=== PATIENT | female | born 1945 | race Caucasian/White ===

== ENCOUNTER 2021-10-18 08:52 | Outpatient (REF) | payer MEDICARE, SELFPAY ==
[2021-10-18 11:15] LABS: MANUAL DIFF FLAG NO
[2021-10-18 11:26] LABS: Basophils Percent Auto 0.5 % (0-2); Eosinophils Absolute Auto 0.2 X10*3/uL (0.0-0.4); Eosinophils Percent Auto 3.5 % (0-4); Hematocrit 40.3 % (37.0-47.0); Hemoglobin 13.4 g/dl (12.0-16.0); Imm Gran Abs Auto 0.02 X10*3/uL (0.00-0.03); Imm Gran Pct Auto 0.3 % (0.0-0.4); Lymphocytes Percent Auto 32.1 % (20-40); Mean Corpuscular HGB Conc 33.3 g/dl (31.0-35.0); Mean Corpuscular Hemoglobin 29.6 pg (27.0-33.0); Mean Corpuscular Volume 89.2 fL (80.0-98.0); Mean Platelet Volume 9.5 fL (9.4-12.3); Monocytes Absolute Auto 0.5 X10*3/uL (0.1-1.2); Monocytes Percent Auto 7.6 % (2-11); Neutrophils Absolute Auto 3.5 x10*3/uL (2.0-8.3); Platelet Count 271 X10*3/uL (160-400); Red Blood Count 4.52 X10*6/uL (4.20-5.50); White Blood Count 6.3 X10*3/uL (4.8-10.8)
[2021-10-18 11:46] LABS: Alanine Aminotransferase 26 U/L (0-31); Albumin Level 4.3 g/dL (3.5-5.0); Alkaline Phosphatase 86 U/L (39-117); Anion Gap 13 (12-20); Aspartate Amino Transferase 23 U/L (5-31); Bilirubin Direct 0.3 mg/dL (0.0-0.5); Bilirubin Total 0.8 mg/dL (0.0-1.0); Blood Urea Nitrogen 16 mg/dL (9-16); Carbon Dioxide 25 mmol/L (22-29); Chloride 106 mmol/L (96-108); Cholesterol 153 mg/dL; Estimated Glomerular Filt Rate > 60; Glucose Fasting 107 mg/dL (60-99); HDL Cholesterol 34 mg/dL; LDL Cholesterol Calculated 80 mg/dl; Potassium 4.4 mmol/L (3.3-5.1); Sodium 140 mmol/L (135-145); Triglycerides 199 mg/dL
[2021-10-18 12:18] LABS: Free T4 (Free Thyroxine) 1.07 ng/dL (0.71-1.85); Thyroid Stimulating Hormone 2.74 uIU/mL (0.32-4.0)
== END 2021-10-18 08:53 | disposition home or self-care (01) ==
LOC: HO.HMGCLDS 08:52
PROVIDERS: PCP Internal Medicine; Visit Provider Internal Medicine
DX: R53.83 Other fatigue (principal); E03.9 Hypothyroidism, unspecified; E78.5 Hyperlipidemia, unspecified
CPT/HCPCS: 36415; 80051; 80061; 80076; 82565; 82947; 84439; 84443; 84520; 85025

== ENCOUNTER 2022-10-31 08:12 | Day surgery (SDC) | payer MEDICARE, SELFPAY ==
--- NOTE | 2022-10-30 09:31 | P.CONAN_ITS ---
Documented by User: Piedad Kraus NP 10/30/22 09:31 HPI - Anesthesia Eval Consult details Narrative: 77yo F for Colonoscopy [facility] Past Medical History Medical History HLD (hyperlipidemia) HTN (hypertension) Hypothyroid Surgical History Surgical History H/O colonoscopy (~2018) S/P cholecystectomy Social History Social History Are you a primary residential care facility manager to a significant other at home: No Do you presently have visiting nurse or other home services: No Patient Tobacco Use Status: Never used Tobacco Use of substances other than those prescribed or required for medical reasons: No Have you been hit, kicked, punched, or otherwise hurt by someone within the past year? If so, by whom?: No Are you DNR?: No Advance Directives: No Advance Directives Information Provided: Yes Recently lost weight without trying: No Eating poorly because of decreased appetite: No Nutrition Risks: Acute nausea or vomiting x1 week Patient : No Meds Allergies Allergy/AdvReac Type Severity Reaction Status Date / Time No Known Allergies Allergy Unverified 02/23/20 14:49 Home Medications Medication Instructions Recorded Confirmed Last Taken Type levothyroxine 100 mcg tablet 100 mcg PO DAILY 10/29/22 10/31/22 10/31/22 History lisinopril 10 mg tablet 10 mg PO DAILY 10/29/22 10/31/22 10/31/22 History pravastatin 20 mg tablet 20 mg PO DAILY 10/29/22 10/29/22 Unknown History Exam Exam Date and Time: October 30, 2022930 Assessment and Plan Assessment Anesthesia Assessment: Chart Reviewed Documented by User: Eneida French MD 10/31/22 09:33 [facility] Past Medical History Medical History HLD (hyperlipidemia) HTN (hypertension) Hypothyroid Family History Family history of problems with anesthesia: No Surgical History Surgical History H/O colonoscopy (~2017) S/P cholecystectomy History of Problems with Anesthesia: No Social History Social History Are you a primary residential care facility manager to a significant other at home: No Do you presently have visiting nurse or other home services: No Patient Tobacco Use Status: Never used Tobacco Use of substances other than those prescribed or required for medical reasons: No Have you been hit, kicked, punched, or otherwise hurt by someone within the past year? If so, by whom?: No Are you DNR?: No Advance Directives: No Advance Directives Information Provided: Yes Recently lost weight without trying: No Eating poorly because of decreased appetite: No Nutrition Risks: Acute nausea or vomiting x1 week Patient : No Meds Allergies Allergy/AdvReac Type Severity Reaction Status Date / Time No Known Allergies Allergy Unverified 02/23/20 14:49 Home Medications Medication Instructions Recorded Confirmed Last Taken Type levothyroxine 100 mcg tablet 100 mcg PO DAILY 10/29/22 10/31/22 10/31/22 History lisinopril 10 mg tablet 10 mg PO DAILY 10/29/22 10/31/22 10/31/22 History pravastatin 20 mg tablet 20 mg PO DAILY 10/29/22 10/29/22 Unknown History Exam Height,Weight and Vital Signs: Height 5 ft 5 in Weight 75.9 kg Vital Signs Temp Pulse Resp BP Pulse Ox O2 Del Method 10/31/22 09:20 98.1 F 75 18 175/70 H 99 Room Air Airway Mallampati Class: II TM Dist: >3cm Neck ROM: Full Loose/Missing/Broken Teeth: No (Caps intact. Denies broken, loose, missing teeth ) Heart: RRR Lungs: CTAB Assessment and Plan Assessment Anesthesia Assessment: Anesthesia Plan Discussed Final Anesthetic Review Family History of Problems with Anesthesia: No History of Problems with Anesthesia: No NPO: Yes ASA Class: II Final Preanesthetic Review: No Changes in Pt Med Stat, Meds/Allgs Chart Reviewed, Consent Obtained/Reviewed and Anes Risks/Benef Reviewed Patient Risk: Low Procedure Risk: Low Assessment/Block/Sedation in SS: Assess/Block/Sedation-SS Anesthetic Plan Anesthetic Plan: MAC: Disposition: Standard PACU
[2022-10-31 09:20] VITALS: BP 175/70; PULSE 75; RESP 18; TEMP 36.7; O2SAT 99; BMI 27.8
--- NOTE | 2022-10-31 09:51 | HO.ANESPROP2 ---
HPI - Anesthesia Eval Consult details Narrative: screening COUNTS INCLUDE 234 BEDS AT THE [facility] Past Medical History Medical History HLD (hyperlipidemia) HTN (hypertension) Hypothyroid Family History Family history of problems with anesthesia: No Surgical History Surgical History H/O colonoscopy (~2017) S/P cholecystectomy History of Problems with Anesthesia: No Social History Social History Are you a primary personal care aid to a significant other at home: No Do you presently have visiting nurse or other home services: No Patient Tobacco Use Status: Never used Tobacco Use of substances other than those prescribed or required for medical reasons: No Have you been hit, kicked, punched, or otherwise hurt by someone within the past year? If so, by whom?: No Are you DNR?: No Advance Directives: No Advance Directives Information Provided: Yes Recently lost weight without trying: No Eating poorly because of decreased appetite: No Nutrition Risks: Acute nausea or vomiting x1 week Patient : No Meds Allergies Allergy/AdvReac Type Severity Reaction Status Date / Time No Known Allergies Allergy Unverified 02/23/20 14:49 Active Medications: Current Medications Lactated Ringer's (Lr) 1,000 mls @ 100 mls/hr IVCONT .Q10H GORDON Ondansetron HCl (Ondansetron Hcl 4 Mg/2 Ml Vial) 4 mg IVPUSH ONCE PRN PRN Reason: Nausea and Vomiting Sodium Biphosphate/Sodium Phosphate (Sodium Phosphate,[place]-Dibasic 133 Ml Enema) 133 ml NC ONCE PRN PRN Reason: Poor Colonoscopy Prep Results Home Medications Medication Instructions Recorded Confirmed Last Taken Type levothyroxine 100 mcg tablet 100 mcg PO DAILY 10/29/22 10/31/22 10/31/22 History lisinopril 10 mg tablet 10 mg PO DAILY 10/29/22 10/31/22 10/31/22 History pravastatin 20 mg tablet 20 mg PO DAILY 10/29/22 10/29/22 Unknown History Exam Exam Date and Time: October 31, 2022 0951 Height,Weight and Vital Signs: Height 5 ft 5 in Weight 75.9 kg Last Vital Signs Temp 98.1 F 10/31/22 09:20 Pulse 75 10/31/22 09:20 Resp 18 10/31/22 09:20 BP 175/70 H 10/31/22 09:20 Pulse Ox 99 10/31/22 09:20 O2 Del Method Room Air 10/31/22 09:20 Airway Mallampati Class: II TM Dist: >3cm Neck ROM: Full Loose/Missing/Broken Teeth: No Heart: rr Lungs: cts Assessment and Plan Assessment Anesthesia Assessment: Anesthesia Plan Discussed and Chart Reviewed Final Anesthetic Review Family History of Problems with Anesthesia: No History of Problems with Anesthesia: No NPO: Yes ASA Class: II Final Preanesthetic Review: No Changes in Pt Med Stat, Meds/Allgs Chart Reviewed, Consent Obtained/Reviewed and Anes Risks/Benef Reviewed Patient Risk: Low Procedure Risk: Low Anesthetic Plan Anesthetic Plan: MAC: Disposition: Standard PACU
[2022-10-31 10:30] VITALS: BP 78/46; PULSE 72; RESP 18; TEMP 36.1; O2SAT 96
--- NOTE | 2022-10-31 10:30 | PM.OP ---
Brief Operative Note Date of Service: 10/31/22 Pre-op diagnosis: Screening Post-op diagnosis: other (Polyp) Procedure: Colonoscopy to the cecum with hot snare polypectomy. Surgeon: Kev Cagle Anesthesia: MAC Was an Senior Front End Web Developer used for this Procedure?: No Estimated blood loss (mL): 0 Pathology: other (A. Polyp at 20cm) Condition: stable Disposition: PACU
[2022-10-31 10:33] VITALS: BP 88/43
[2022-10-31 10:35] VITALS: BP 105/51
[2022-10-31 10:45] VITALS: BP 124/57; PULSE 68; RESP 18; TEMP 36.6; O2SAT 96
--- NOTE | 2022-10-31 11:00 | OP_ITS ---
DATE OF SERVICE: 10/31/2022 SURGEON: Kev Cagle MD INDICATIONS: The patient presents for evaluation of colorectal cancer screening, personal history of tubular adenoma of the colon, and family history of colon cancer. Full consent has been obtained from her for this, including risks of bleeding and perforation. PREOPERATIVE DIAGNOSIS: POSTOPERATIVE DIAGNOSIS: PROCEDURE PERFORMED: Colonoscopy to the cecum with hot snare polypectomy. ESTIMATED BLOOD LOSS: COMPLICATIONS: ANESTHESIA: Medication used: Monitored anesthesia care. ASSISTANTS: SPECIMENS: PREOPERATIVE DIAGNOSES: Colorectal cancer screening, personal history of tubular adenoma of the colon, family history of colon cancer. POSTOPERATIVE DIAGNOSES: Colorectal cancer screening, personal history of tubular adenoma of the colon, family history of colon cancer, colon polyp, diverticulosis, and internal hemorrhoids. DESCRIPTION OF PROCEDURE: The patient was placed in the left lateral decubitus position. The digital rectal exam revealed some external hemorrhoids. The Olympus video pediatric colonoscope was entered into the rectum and advanced to the cecum with the assistance of abdominal wall pressure. Once in the cecum, I did identify a normal-appearing cecal pouch with appendiceal orifice and a normal-appearing ileocecal valve. The entire cecum and ileocecal valve appeared normal. There was transillumination of light deep in the right lower quadrant. The scope was then slowly withdrawn, assessing all mucosal surfaces carefully. Preparation was excellent. At 20 cm was an approximately 10 to 12 mm slightly raised polyp that appeared to be consistent with a possible serrated polyp. This was removed by hot snare polypectomy and recovered by suction. The polypectomy site appeared clean, without any sign of residual polyp nor bleeding. I did not visualize any other polyps, colitis, nor angiodysplasia. There was a mild amount of sigmoid diverticulosis. In the rectum, the scope was retroflexed visualizing internal hemorrhoids, but no other pathology. The rectal mucosa appeared normal. Scope was straightened and withdrawn from the patient. She tolerated the procedure well and was returned to the recovery area in stable condition. IMPRESSION: 1. Colon polyp. 2. Diverticulosis. 3. Internal hemorrhoids. PLAN: Given her age and these minimal findings, I do not think she would need any further screening colonoscopies in the future. She was advised not to use any aspirin and NSAIDs for 1 week. She will see me otherwise on a p.r.n. basis. This has been discussed with her . MD NEO Hernandes/MODL / [phone]
== END 2022-10-31 11:28 | disposition home or self-care (01) ==
PROVIDERS: PCP Internal Medicine; Visit Provider Internal Medicine
PROC: 0DJD8ZZ Inspection of Lower Intestinal Tract, Via Natural or Artificial Opening Endoscopic (ICD-10-PCS; CPT 45378; principal; 2022-10-31 09:20)
DX: Z12.11 Encounter for screening for malignant neoplasm of colon (principal); Z86.010 Personal history of colon polyps; Z80.0 Family history of malignant neoplasm of digestive organs; K63.5 Polyp of colon; K57.30 Diverticulosis of large intestine without perforation or abscess without bleeding; K64.8 Other hemorrhoids; I10 Essential (primary) hypertension; E78.5 Hyperlipidemia, unspecified; E03.9 Hypothyroidism, unspecified; Z79.899 Other long term (current) drug therapy; Z90.49 Acquired absence of other specified parts of digestive tract
CPT/HCPCS: 45385; 88305

== ENCOUNTER 2025-01-27 14:43 | Outpatient (AMB) | payer MEDICARE, SELFPAY ==
--- NOTE | 2025-01-27 14:43 | MHC.PC.OV ---
Vital Signs 01/27/25 14:50 Height 5 ft 4.57 in Weight 165 lb BMI 27.8 BP 134/90 H Blood Pressure Location Rt femoral Position Sitting Respiration 16 Pulse 84 Pulse Source Pulse Oximeter Temp 98.2 F Temp Source Temporal Artery Scan Pulse Oximetry (%) 97 Oxygen Delivery Method Room Air Intake Visit Reasons: Establish Care Medical Imaging Technologist Required: No Accompanied by: Self / Same As Patient Allergies No Known Allergies Allergy (Verified 01/27/25 15:03) Medication List - Last Reconciled 01/27/25 by Hoda Cool PA-C levothyroxine 100 mcg PO DAILY lisinopril 10 mg PO DAILY pravastatin 20 mg PO DAILY Tobacco use date assessed: 01/27/25 Fall risk assessment: No Falls in past year Last assessed Fall Risk: 01/27/25 Dental Screening Dental Screen Date: 01/27/25 Did you have a dental visit in the last 12 months?: Yes Did you have a dental problem in the last 6 months where you did not have access to dental care?: No Was dental information given to patient?: Patient has dentist HPI Establish Care HPI Details The patient is a 79-year-old female presenting for the establishment of primary care. The patient has a history of hypothyroidism, diagnosed in 2006, and has been on levothyroxine since then. Initially, the dose was higher, but it was reduced after three months and has remained stable since. She also has hypertension, currently managed with lisinopril 10 mg, and hyperlipidemia managed with pravastatin 20 mg. Her blood pressure was noted to be higher than usual during this visit, with a reading of 193/70 mmHg, although she typically records around 130/68 mmHg. The patient underwent a colonoscopy on October 31, 2022, which revealed colonic polyps, diverticulosis, and hemorrhoids. A small polyp was removed and found to be of no consequence. Preventative care includes annual mammograms and colonoscopies every five years due to a family history of rectal cancer in her brother. Social History - Care Home: The patient retired at age 65 and has been managing her health independently since then. [facility] Medical History (Updated 01/27/25 @ 15:28 by Hoda Cool PA-C) History of mammogram (~2023) Preventative health care Hemorrhoids Diverticulosis Colonic polyp HLD (hyperlipidemia) HTN (hypertension) Hypothyroid Surgical History (Updated 01/27/25 @ 15:28 by Hoda Cool PA-C) S/P cholecystectomy H/O colonoscopy (~10/31/22) Family History Father No problems noted. Mother Type 2 diabetes mellitus Social History Housing: House Are you a primary palliative care physician to a significant other at home: No Do you presently have visiting nurse or other home services: No Alcohol intake: current Alcohol intake frequency: holidays/special occasions only Patient Tobacco Use Status: Never used Tobacco service: No Current occupational status: retired Cognitive needs: No Hearing needs: No Vision needs: Yes (rx glasses) Questionnaire PHQ-9 Over the last 2 weeks, how often have you been bothered by any of the following problems? 1. Little interest or pleasure in doing things: not at all 2. Feeling down, depressed, or hopeless: not at all 3. Trouble falling or staying asleep, or sleeping too much: not at all 4. Feeling tired or having little energy: not at all 5. Poor appetite or overeating: not at all 6. Feeling bad about yourself - or that you are a failure or have let yourself or your family down: not at all 7. Trouble concentrating on things, such as reading the newspaper or watching television: not at all 8. Moving or speaking so slowly that other people could have noticed. Or the opposite - being so fidgety or restless that you have been moving around a lot more than usual: not at all 9. Thoughts that you would be better off or of hurting yourself in some way: not at all Total score: 0 Depression Screening Interpretation: Negative Depression Screening Done: Yes 51735 - PHQ-9 Billing: Yes Source: Developed by Drs. Kev Caballero, Windy Scanlon, Jac Hadley and colleagues, with an educational ryan from [employer]. Thrive Questionnaire Date Thrive assessed: 01/27/25 I am a: Patient What is your living situation today?: I have a steady place to live Within the past 12 months, did the food you bought not last and you didn't have the money to get more?: Never true Within the past 12 months, did you worry whether your food would run out before you got money to buy more?: Never true Do you have trouble paying for medicines?: No Do you have trouble getting transportation to medical appointments?: No Do you have trouble paying your heating and electricity bill?: No Do you have trouble taking care of your child, family member or friend?: No Do you have trouble with day-to-day activities such as bathing, preparing meals, shopping, managing finances, etc.?: No Are you currently unemployed and looking for a job?: No Are you interested in more education?: No Please select the resources that you would like help with: None Currently or been in a relationship where the following occur: No concerns reported THRIVE Score: 0 AUDIT C Alcohol Use Questionnaire (AUDIT-C) 1. How often do you have a drink containing alcohol?: Monthly or less 2. How many drinks containing alcohol do you have on a typical day when you are drinking?: 1 or 2 3. How often do you have six or more drinks on one occasion?: Never Total Score: 1 Score Reviewed/Action Taken: No ROSA-7 AMB Questionnaire ROSA-7 Date ROSA - 7 assessed: 01/27/25 Feeling nervous, anxious, or on edge: 0 = Not at all Not being able to stop or control worryin = Not at all Worrying too much about different things: 0 = Not at all Trouble relaxin = Not at all Being so restless that it is hard to sit still: 0 = Not at all Becoming easily annoyed or irritable: 0 = Not at all Feeling afraid as if something awful might happen: 0 = Not at all Total ROSA-7 score (0-4 normal; 5-9 mild; 10-14 moderate; 15-21 severe): 0 Source: Developed by Drs. Kve Caballero, Windy Scanlon, Jac Hadley and colleagues, with an educational ryan from [employer]. ROSA-7 Assessment Billing ROSA-7 Assessment Tool: ROSA-7 Assessment 13005 Review of Systems Const Details: - Cardiovascular: Denies chest pain, palpitations, or syncope. - Gastrointestinal: Denies abdominal pain, nausea, vomiting, or changes in bowel habits. All systems reviewed & are unremarkable except as noted in HPI and below Physical exam (Primary Care) Vital Signs: Last Vital Signs Temp 98.2 F 01/27/25 14:50 Pulse 84 01/27/25 14:50 Resp 16 01/27/25 14:50 BP 134/90 H 01/27/25 14:50 Pulse Ox 97 01/27/25 14:50 Oxygen Delivery Method Room Air 01/27/25 14:50 Care Plan Goal for BP management: <140/90 at goal and patient to continue monitor her blood pressure if greater than 140/90 she will contact us to make an appointment BMI result Body Mass Index 27.8 BMI Assessment/Plan discussion: High BMI High, discussed plan: lifestyle, weight reduction, dietary, physical activity, alcohol moderation and other Tobacco/Smoking Status: Tobacco use Status Tobacco use date assessed 01/27/25 01/27/25 14:55 Patient Tobacco Use Status Never used Tobacco 01/27/25 14:55 PHQ-9: PHQ-9 Score PHQ-9: Total score 0 01/27/25 14:55 Depression Screening Interpretation: Negative Thrive Assessment: Date of Thrive Assessment Date Thrive assessed 01/27/25 01/27/25 14:55 Currently or been in a relationship where the following occur: No concerns reported Const Other: Appearance: Alert. Oriented X3. No acute distress. Head: Normal external exam. Normocephalic. Atraumatic. Eyes: Pupils are equal, round, and reactive to light. Extraocular movements intact. Conjunctiva and sclera normal. Eyelids normal. Ears: External auditory canal normal. Tympanic membranes normal. Throat: Pharynx normal. Uvula midline. Moist mucous membranes. Neck: Normal inspection. Neck supple. Full range of motion. Cardiovascular: Normal heart rate and rhythm. Heart sound normal. No murmurs noted. Pulses normal throughout. Respiratory: No respiratory distress. Painless inspiration. Breath sounds normal. No wheezes/rales/rhonchi noted. No accessory muscle usage noted or decreased air movement noted. Back: Full range of motion noted. Skin: Skin warm and dry. Normal skin color. Normal skin turgor. No rashes/lesions/lacerations noted. Extremities: No lower extremity edema. Extremities exhibit normal range of motion. Results Reviewed Results Reviewed: - Colonoscopy (10/31/2022): Revealed colonic polyps, diverticulosis, and hemorrhoids. A small polyp was removed and found to be of no consequence. Coding Level of Care Code New Pt Level 4 (29302) Complex EM visit Add On G2211 Diagnoses Hypothyroid E03.9 HTN (hypertension) I10 HLD (hyperlipidemia) E78.5 Colonic polyp K63.5 Diverticulosis K57.90 Hemorrhoids K64.9 Preventative health care Z00.00 Additional Codes PHQ-9 - 28555 - PHQ-9 Billing: Yes ([id number]) ROSA-7 Assessment Billing - ROSA-7 Assessment Tool: ROSA-7 Assessment 61964 ([id number]) Assessment & Plan Assessment & Plan (1) Hypothyroid: Code(s): E03.9 - Hypothyroidism, unspecified Category: Medical Plan: The patient will continue on her current dose of levothyroxine 100 mcg, as her thyroid function tests were normal during her last evaluation. (2) HTN (hypertension): Code(s): I10 - Essential (primary) hypertension Category: Medical Plan: The patient's blood pressure was elevated during the visit, but she typically has lower readings at home. She is advised to monitor her blood pressure at home and report any consistently high readings. (3) HLD (hyperlipidemia): Code(s): E78.5 - Hyperlipidemia, unspecified Category: Medical Plan: The patient will continue on pravastatin 20 mg for hyperlipidemia management. (4) Colonic polyp: Code(s): K63.5 - Polyp of colon Category: Medical Plan: The patient had a colonoscopy that revealed colonic polyps, one of which was removed and found to be benign. (5) Diverticulosis: Code(s): K57.90 - Diverticulosis of intestine, part unspecified, without perforation or abscess without bleeding Category: Medical Plan: The patient is asymptomatic for diverticulosis and requires no specific treatment at this time. (6) Hemorrhoids: Code(s): K64.9 - Unspecified hemorrhoids Category: Medical Plan: The patient has hemorrhoids, but no active treatment is required as they are not causing symptoms. (7) Preventative health care: Code(s): Z00.00 - Encounter for general adult medical examination without abnormal findings Category: Medical Plan: The patient is advised to continue with annual mammograms and colonoscopies every five years due to family history of rectal cancer. Plan Plan Patient was informed and verbally consented to the use of an ambient scribe for clinic note documentation during this visit. 1. Hypothyroidism The patient will continue on her current dose of levothyroxine 100 mcg, as her thyroid function tests were normal during her last evaluation. 2. Hypertension The patient's blood pressure was elevated during the visit, but she typically has lower readings at home. She is advised to monitor her blood pressure at home and report any consistently high readings. 3. Hyperlipidemia The patient will continue on pravastatin 20 mg for hyperlipidemia management. 4. Colonic Polyps The patient had a colonoscopy that revealed colonic polyps, one of which was removed and found to be benign. 5. Diverticulosis The patient is asymptomatic for diverticulosis and requires no specific treatment at this time. 6. Hemorrhoids The patient has hemorrhoids, but no active treatment is required as they are not causing symptoms. 7. Preventative Care The patient is advised to continue with annual mammograms and colonoscopies every five years due to family history of rectal cancer. During the visit, I discussed with the patient the importance of monitoring her blood pressure at home due to the elevated reading observed today. We reviewed her current medications, including levothyroxine, lisinopril, and pravastatin, and confirmed that no changes are needed at this time. I also emphasized the need for continued preventative care, including annual mammograms and colonoscopies every five years, given her family history of rectal cancer. Orders: Orders Complete Blood Count Auto Diff Today Z00.00 - Encounter for general adult medical examination without abnormal findings Liver Panel Today Z00.00 - Encounter for general adult medical examination without abnormal findings TSH reflex Free T4 Today Z00.00 - Encounter for general adult medical examination without abnormal findings C Reactive Protein Today Z00.00 - Encounter for general adult medical examination without abnormal findings Comprehensive [place]. Panel Fast Today Z00.00 - Encounter for general adult medical examination without abnormal findings Magnesium Today Z00.00 - Encounter for general adult medical examination without abnormal findings Hemoglobin A1c Today Z00.00 - Encounter for general adult medical examination without abnormal findings Lipid Panel Today Z00.00 - Encounter for general adult medical examination without abnormal findings Vitamin B12 and Folate Today Z00.00 - Encounter for general adult medical examination without abnormal findings Vitamin D 25-OH Total Today Z00.00 - Encounter for general adult medical examination without abnormal findings Patient Instructions: - Monitor blood pressure at home regularly and report any consistently high readings. - Continue taking current medications as prescribed. - Schedule and attend annual mammograms and colonoscopies every five years.
--- OUTSIDE RECORDS SUMMARY | 2025-01-27 14:47 | XMS_ITS | Patient Health Record ---
Author Organization [facility] Address [address] [place] [address] Care Team Providers Care Medical Technologist Clinical Name Role Phone Josephine (RETIRED) Lg WILLOUGHBY Primary Care Provider Unavailable Kev Cagle Unavailable [phone] Allergies No Known Allergies Reason For Referral No Information Medications Medication SIG (Take, Route, Frequency, Duration) Notes Start Date End Date Status Lisinopril 10 MG TAKE ONE TABLET BY M OUTH EVERY DAY Oral for 90 Active Calcium + D Active Centrum Silver Activ e Levothyroxine Sodium 100 MCG TAKE ONE TABLET BY MOUTH EVERY DAY Oral for 90 Active Pravastatin Sodium 20 MG TAKE ONE TABLET BY MOUTH EVERY DAY. DISCONTINUE FENOFIBRATE Oral for 90 Active Problems Problem Type SNOMED Code ICD Code Onset Dates Problem Status W/U Status Risk Notes Problem 504500334 Colon cancer screening (Z12.11) Active confirmed Problem 486187766 Encounter for screening for malignant neoplasm of colon (Z12.11) Active confirmed Problem 251048508 History of adenomatous polyp of colon (Z86.010) Active confirmed Problem 572322034389097 Preprocedural examination (Z01.818) Active confirmed Problem 364432855 Family history o f colon cancer (Z80.0) Active confirmed Problem Diverticulosis of colon (102704545) Diverticulosis of colon (K57.30) Active confirmed Plan Of Treatment Pending Test Test Name Order Date Pathology 10/31/2022 Future Test Test Name Order Date COLONOSCOPY 12/16/2011 COLONOSCOPY 04/28/2017 COLONOSCOPY 08/28/2022 Insurance Providers Payer Name Payer Address Payer Phone Subscriber Number Group Number Insured Name Patient Relationship to Insured Coverage Start Date Coverage End Date [facility] [address] [facility], [place] [phone] [id number] LAYA MURCIA Self - patient is the insured Medical (General) History Medical History History ICD Code Hypothyroidism Colonoscopy 08-17-2006-tubula r adenoma removed; negative colonoscopy in 12/2011 except for mild diverticulosis and small internal hemorrhoids HTN Denies PR,DM,CVA,Lung disease,renal dise ase Colonoscopy 06/2017 with a hyperplastic p olyp Hyperlipidemia Surgical History Surgery Date(Month/Year) x 2 Cholecystectomy
[2025-01-27 14:50] VITALS: BP 134/90; PULSE 84; RESP 16; TEMP 36.8; O2SAT 97; BMI 27.8
== END 2025-01-27 15:48 | disposition home or self-care (01) ==
PROVIDERS: PCP Internal Medicine; Visit Provider Physician Assistant Medical
DX: E03.9 Hypothyroidism, unspecified (principal); I10 Essential (primary) hypertension; E78.5 Hyperlipidemia, unspecified; K63.5 Polyp of colon; K57.90 Diverticulosis of intestine, part unspecified, without perforation or abscess without bleeding; K64.9 Unspecified hemorrhoids; Z00.00 Encounter for general adult medical examination without abnormal findings

== ENCOUNTER → 2025-01-27 14:43 | Outpatient (BNVA) | payer MEDICARE, SELFPAY | PROVIDERS: PCP Internal Medicine; Visit Provider Physician Assistant Medical | DX: Z00.00 Encounter for general adult medical examination without abnormal findings (principal); I10 Essential (primary) hypertension; E03.9 Hypothyroidism, unspecified; E78.5 Hyperlipidemia, unspecified; K57.90 Diverticulosis of intestine, part unspecified, without perforation or abscess without bleeding; K64.9 Unspecified hemorrhoids; K63.5 Polyp of colon; Z79.899 Other long term (current) drug therapy; Z86.0100 Personal history of colon polyps, unspecified | CPT/HCPCS: 96127; 99202 ==